=== PATIENT | female | born 1975 | race Caucasian/White ===

== ENCOUNTER 2019-02-10 08:09 | Emergency (ER) | payer OTHER ==
[~2019-02-10] VITALS: Ht 172.7 cm; Wt 86.2 kg
[~2019-02-10 08:09] MED LIST: BACTRIM DS 8001 TA1 PO; CEPHALEXIN500 M1 PO; DAYPRO600 M1 PO; HYDROCODONE BIT1 T11 PO; TRAMADOL HCL50 MG PO; VICODIN 5/500 505 MG PO
[2019-02-10 08:10] VITALS: BP 143/69
[2019-02-10] MEDS ORDERED: DOXYCYCLINE100 M3 PO (09:13)
[2019-02-10] MEDS ORDERED: NORCO 5-325 TA1 EACH PO (09:13)
[2019-02-10] MEDS ORDERED: Motrin,Rufen800 MG PO (09:13)
== END 2019-02-10 09:25 ==
LOC: ED 08:09
DX: L02.414 Cutaneous abscess of left upper limb (principal); F17.200 Nicotine dependence, unspecified, uncomplicated

== ENCOUNTER 2019-04-26 10:46 | Emergency (ER) | payer OTHER ==
[~2019-04-26] VITALS: Ht 170.1 cm; Wt 88.5 kg
[~2019-04-26 10:46] MED LIST changes: +DOXYCYCLINE100 M3 PO; +Motrin,Rufen800 MG PO; +NORCO 5-325 TA1 EACH PO
[2019-04-26 10:47] VITALS: BP 113/70
[2019-04-26] MEDS ORDERED: NORCO 5-325 TA1 EACH PO (12:20)
[2019-04-26] MEDS ORDERED: DOXYCYCLINE100 M3 PO (12:20)
== END 2019-04-26 12:35 | disposition home or self-care (01) ==
LOC: ED 10:46
DX: L02.416 Cutaneous abscess of left lower limb (principal); F17.200 Nicotine dependence, unspecified, uncomplicated

== ENCOUNTER 2024-12-16 14:23 | Emergency (ER) | payer OTHER ==
[~2024-12-16] VITALS: Ht 172.7 cm; Wt 74.4 kg
[2024-12-16 14:36] VITALS: BP 129/64
[2024-12-16] MEDS ORDERED: VIBRAMYCIN100 MG PO (15:03)
[2024-12-16] MEDS ORDERED: HYDROCODONE-AC1 EAC1 PO (15:03)
[2024-12-16] MEDS ORDERED: Acetaminophen/Hydrocodone 5 MG/325 MG TABLET PO ONE (15:05)
== END 2024-12-16 15:36 | disposition home or self-care (01) ==
LOC: ED 14:23
DX: L03.116 Cellulitis of left lower limb (principal); M79.652 Pain in left thigh